=== PATIENT | male | born 1970 | race Caucasian/White ===

== ENCOUNTER → 2022-04-06 | Outpatient (CLI) | payer OTHER ==
--- NOTE | 2022-04-06 18:03 | Diagnostic Imaging Report ---
EXAMINATION: Right elbow radiographs, 3 views. COMPARISON: None. HISTORY: 51-year-old male, right elbow pain. FINDINGS: There is very mild degenerative type enthesopathy at the distal triceps tendon insertion. There is no elbow joint effusion. Elbow is not currently dislocated. There is mild degenerative type enthesopathy at the proximal flexor tendon insertion. There is no acute fracture. The joint spaces are well preserved. IMPRESSION: 1. Mild degenerative type enthesopathy with otherwise unremarkable radiographic assessment of the right elbow. Dictated by: Dictated on workstation # [id number]
== END ==
LOC: ORTHO 13:42
PROVIDERS: ATTEND Orthopaedic Surgery
DX: M19.021 Primary osteoarthritis, right elbow (principal)
CPT/HCPCS: 20600; 73080